=== PATIENT | male | born 1935 | race Caucasian/White ===

== ENCOUNTER 2017-05-01 05:55 | Day surgery (SDC) | payer OTHER ==
[~2017-05-01 05:55] MED LIST: ATORVASTATIN CA10 MG PO; BETIMOL5 ML OP; COZAAR50 MG PO; FOLIC ACID1 MG PO; LATANOPROST1 GM; TAMS0.4C PO; VITAMIN D35000 UNIT PO
== END 2017-05-01 17:30 | disposition home or self-care (01) ==
LOC: CIR.AMB 05:55
DX: K40.90 Unilateral inguinal hernia, without obstruction or gangrene, not specified as recurrent (principal); M46.1 Sacroiliitis, not elsewhere classified; M17.0 Bilateral primary osteoarthritis of knee; M62.838 Other muscle spasm; R15.9 Full incontinence of feces

== ENCOUNTER 2017-05-31 08:56 | Outpatient (CLI) | payer OTHER | END 2017-05-31 11:45 | disposition home or self-care (01) | LOC: TOM 08:56 | DX: R10.9 Unspecified abdominal pain (principal) ==

== ENCOUNTER 2017-10-09 05:35 | Day surgery (SDC) | payer OTHER | END 2017-10-09 14:10 | disposition home or self-care (01) | LOC: CIR.AMB 05:35 | DX: K40.90 Unilateral inguinal hernia, without obstruction or gangrene, not specified as recurrent (principal) ==

== ENCOUNTER → 2018-05-08 | Outpatient (CLI) | payer OTHER | END | disposition home or self-care (01) | LOC: NUCLEAR 09:30 | DX: I10 Essential (primary) hypertension (principal); I67.89 Other cerebrovascular disease ==

== ENCOUNTER 2019-05-14 20:22 | Inpatient (IN) | payer OTHER ==
[~2019-05-14] VITALS: Ht 170.2 cm; Wt 60.3 kg
--- NOTE | 2019-05-14 21:21 | NUR ---
PTE ALERTA Y ORIENTADO X3 ACOMPANADO. PTE REFIERE QUE A LAS 7:30PM PRESENTO UN EPISODIO DONDE QUERIA HABLAR Y SOLO PODIA DECIR DISPARATES. B/P MANUAL EN 210/80 Y PULSO EN 50. SE LE REALIZA EKG Y SE LE PRESENTA A DR. BRANDT. SE COLOCA PTE EN K8 CONECTADO A MONITOR CARDIACO Y OXIMETRIA.
--- NOTE | 2019-05-14 22:17 | NUR ---
TX. OFRECIDO POR MR. BAERERO QUIEN ORIENTA AL PACIENTE SOBRE EL TX. EXTRAE MUESTRAS DE AMADA BAJO MEDIDAS ASEPTICAS CANALIZA Y COLOCA H/L.
--- NOTE | 2019-05-15 01:31 | NUR ---
SE TRASLADA MASCULINO ALERTA Y ORIENTADO POR ALBERT ESFERAS, EN CAMA CON BARANDAS ELEVADAS Y SEGURAS. SE UBICA EN AREA DE CHEST PAIN. SE CONECTA A MONITOR CARDIACO CON OXIMETRIA DE PULSO. SE ENTREGA A MR. MILLER.
--- NOTE | 2019-05-15 01:35 | NUR ---
SE RECIBE PACIENTE ALERTA Y ORIENTADO X3 ACOMPANADO POR RAMIREZ ESPOSA, SE UBICA EN CAMA 16 DE LA UNIDAD DE CHESTPAIN POR ORDEN DE DR. BRANDT PACIENTE SE CONECTA A MONITOR CARDIACO Y OXIMETRO DE PULSO , SE COMIENXA EN MEDICAMENTO CLEVIPREX POR ORDEN DE ,PACIENTE CON B/P EN 185/77. SE OBSERVA POR CAMBIOS. PACIENTE CON CONSULTA CON ,DR.RIVERA DELGADO, SE DA SEGUIMIENTO
--- NOTE | 2019-05-15 05:31 | NUR ---
PACIENTE PRECENTA B/P EN 120/55 CON CLEVIPREX A 1ML/HR SE NOTIFICA A DR. BRAVO QUIEN ORDENA COLOCAR EN HOLD MEDICAMENTO CLEVIPREX Y OBSERVAR PROXIMA B/P, SE EJECUTA ORDEN MEDICA, SE REALIZAN MUETRAS DE [facility]ATORIOS PARA TROPONINAS, CK, PROBNP.
== END 2019-05-17 17:50 | disposition home or self-care (01) | DRG 69 ==
LOC: ER 20:22 → SEC-K 05-15 07:19 → MEDI 05-15 14:30
PROVIDERS: ADMIT Internal Medicine
PROC: 4A12X4Z Monitoring of Cardiac Electrical Activity, External Approach (ICD-10-PCS; principal; 2019-05-15)
PROC: B030ZZZ Magnetic Resonance Imaging (MRI) of Brain (ICD-10-PCS; 2019-05-15)
PROC: B030YZZ Magnetic Resonance Imaging (MRI) of Brain using Other Contrast (ICD-10-PCS; 2019-05-15)
PROC: B246ZZZ Ultrasonography of Right and Left Heart (ICD-10-PCS; 2019-05-16)
PROC: B345ZZZ Ultrasonography of Bilateral Common Carotid Arteries (ICD-10-PCS; 2019-05-16)
PROC: B348ZZZ Ultrasonography of Bilateral Internal Carotid Arteries (ICD-10-PCS; 2019-05-16)
DX: G45.8 Other transient cerebral ischemic attacks and related syndromes (principal); I63.89 Other cerebral infarction; I67.4 Hypertensive encephalopathy; I48.92 Unspecified atrial flutter; I11.9 Hypertensive heart disease without heart failure; I34.0 Nonrheumatic mitral (valve) insufficiency
CPT/HCPCS: 70546

== ENCOUNTER 2019-05-18 15:39 | Emergency (ER) | payer OTHER ==
[~2019-05-18] VITALS: Ht 160 cm; Wt 58.1 kg
== END 2019-05-19 09:01 | disposition home or self-care (01) ==
LOC: ER 15:39
DX: R53.1 Weakness (principal); I11.9 Hypertensive heart disease without heart failure; M46.1 Sacroiliitis, not elsewhere classified; M62.838 Other muscle spasm; K40.90 Unilateral inguinal hernia, without obstruction or gangrene, not specified as recurrent

== ENCOUNTER 2019-06-18 05:50 | Day surgery (SDC) | payer OTHER ==
[~2019-06-18 05:50] MED LIST changes: +PEPCID AC20 MG PO; +PLAVIX75 MG PO; +TOPROL XL25 M1 PO; +ZOLOFT50 MG PO
== END 2019-06-18 17:30 | disposition home or self-care (01) ==
LOC: CIR.AMB 05:50
DX: R15.9 Full incontinence of feces (principal)
CPT/HCPCS: 64581; C1778

== ENCOUNTER 2019-07-02 06:15 | Day surgery (SDC) | payer OTHER ==
[~2019-07-02 06:15] MED LIST changes: +[UNRECOGNIZED DRUG - OTHER]
== END 2019-07-02 10:45 | disposition home or self-care (01) ==
LOC: CIR.AMB 06:15 → ADM 11:15
DX: R15.9 Full incontinence of feces (principal)
CPT/HCPCS: 64590; C1767

== ENCOUNTER 2019-10-29 08:13 | Outpatient (CLI) | payer OTHER | END 2019-10-29 09:18 | disposition home or self-care (01) | LOC: NUCLEAR 08:13 | DX: C61 Malignant neoplasm of prostate (principal) | CPT/HCPCS: 78306; A9503 ==

== ENCOUNTER 2020-05-21 12:09 | Outpatient (CLI) | payer OTHER | END 2020-05-21 12:16 | disposition home or self-care (01) | LOC: LAB 12:09 | PROVIDERS: ATTEND Internal Medicine Sports Medicine | DX: N20.0 Calculus of kidney (principal) ==

== ENCOUNTER 2020-05-28 09:45 | Outpatient (CLI) | payer OTHER | END 2020-05-28 10:01 | disposition home or self-care (01) | LOC: TOM 09:45 | DX: N40.0 Benign prostatic hyperplasia without lower urinary tract symptoms (principal); C61 Malignant neoplasm of prostate; R97.8 Other abnormal tumor markers; Z01.811 Encounter for preprocedural respiratory examination | CPT/HCPCS: 71045; 72193; Q9965 ==

== ENCOUNTER 2020-09-17 16:37 | Emergency (ER) | payer OTHER ==
[~2020-09-17] VITALS: Ht 78.7 cm; Wt 62.1 kg
[2020-09-17] MEDS ORDERED: CASODEX50 MG (17:05)
[2020-09-17] MEDS ORDERED: CLEOCIN HCL300 MG PO (18:57)
[2020-09-17] MEDS ORDERED: PROTONIX40 MG PO (18:57)
[2020-09-17] MEDS ORDERED: KETO10TA2 PO (18:57)
== END 2020-09-17 19:09 | disposition home or self-care (01) ==
LOC: ER 16:37
DX: K04.7 Periapical abscess without sinus (principal)

== ENCOUNTER → 2021-01-27 07:27 | Outpatient (CLI) | payer OTHER ==
[~2021-01-27 07:27] MED LIST changes: +CASODEX50 MG; +CLEOCIN HCL300 MG PO; +KETO10TA2 PO; +PROTONIX40 MG PO
== END | disposition home or self-care (01) ==
LOC: NUCLEAR 07:27
PROVIDERS: ATTEND Radiology Radiation Oncology
DX: C61 Malignant neoplasm of prostate (principal)
CPT/HCPCS: 78803; A9503

== ENCOUNTER 2022-02-05 14:07 | Emergency (ER) | payer OTHER ==
[~2022-02-05] VITALS: Ht 170.2 cm; Wt 59.0 kg
== END 2022-02-05 17:31 | disposition home or self-care (01) ==
LOC: ER 14:07
DX: R55 Syncope and collapse (principal); I10 Essential (primary) hypertension

== ENCOUNTER 2022-07-09 11:58 | Emergency (ER) | payer OTHER ==
[~2022-07-09] VITALS: Ht 167.6 cm; Wt 58.1 kg
[2022-07-09] MEDS ORDERED: COZAAR50 MG PO (12:15)
[2022-07-09] MEDS ORDERED: ZOLOFT50 MG PO (12:15)
[2022-07-09] MEDS ORDERED: PLAVIX75 MG PO (12:15)
[2022-07-09] MEDS ORDERED: LIPITOR20 MG (12:16)
[2022-07-09] MEDS ORDERED: TAMS0.4C PO (12:16)
[2022-07-09] MEDS ORDERED: IMODIUM A-D2 MG PO (12:16)
[2022-07-09] MEDS ORDERED: CASODEX50 MG PO (12:17)
[2022-07-09] MEDS ORDERED: LATANOPROST2.5 ML OP (12:17)
[2022-07-09] MEDS ORDERED: PROTONIX40 M1 PO (12:17)
[2022-07-09] MEDS ORDERED: OXYBUTYNIN CHLOR5 M1 PO (12:18)
== END 2022-07-09 18:26 | disposition home or self-care (01) ==
LOC: ER 11:58
DX: S50.11XA Contusion of right forearm, initial encounter (principal); W19.XXXA Unspecified fall, initial encounter; Y93.9 Activity, unspecified; Y92.9 Unspecified place or not applicable; L03.113 Cellulitis of right upper limb; I10 Essential (primary) hypertension

== ENCOUNTER 2022-07-13 09:28 | Emergency (ER) | payer OTHER ==
[~2022-07-13] VITALS: Ht 170.2 cm; Wt 58.1 kg
[~2022-07-13 09:28] MED LIST changes: +CASODEX50 MG PO; +IMODIUM A-D2 MG PO; +LATANOPROST2.5 ML OP; +LIPITOR20 MG; +OXYBUTYNIN CHLOR5 M1 PO; +PROTONIX40 M1 PO
== END 2022-07-13 12:50 | disposition home or self-care (01) ==
LOC: ER 09:28
DX: M71.10 Other infective bursitis, unspecified site (principal); B96.89 Other specified bacterial agents as the cause of diseases classified elsewhere; I10 Essential (primary) hypertension; Z85.46 Personal history of malignant neoplasm of prostate

== ENCOUNTER 2022-08-29 13:22 | Outpatient (CLI) | payer OTHER | END 2022-08-29 13:28 | disposition home or self-care (01) | LOC: LAB 13:22 | DX: M85.2 Hyperostosis of skull (principal) ==

== ENCOUNTER 2023-06-28 12:58 | Outpatient (CLI) | payer OTHER | END 2023-06-28 13:00 | disposition home or self-care (01) | LOC: NUCLEAR 12:58 | PROVIDERS: ATTEND Internal Medicine Cardiovascular Disease | DX: I87.2 Venous insufficiency (chronic) (peripheral) (principal) ==

== ENCOUNTER 2024-02-13 10:52 | Outpatient (CLI) | payer OTHER | END 2024-02-13 10:53 | disposition home or self-care (01) | LOC: NUCLEAR 10:52 | PROVIDERS: ATTEND Internal Medicine Cardiovascular Disease | DX: I82.3 Embolism and thrombosis of renal vein (principal); I87.2 Venous insufficiency (chronic) (peripheral) ==

== ENCOUNTER → 2024-03-21 09:02 | Outpatient (CLI) | payer OTHER | END | disposition home or self-care (01) | LOC: NUCLEAR 09:00 | PROVIDERS: ATTEND Internal Medicine | DX: I87.2 Venous insufficiency (chronic) (peripheral) (principal) ==

== ENCOUNTER → 2024-07-17 07:17 | Outpatient (CLI) | payer OTHER | END | disposition home or self-care (01) | LOC: NUCLEAR 06:00 | DX: C61 Malignant neoplasm of prostate (principal); M85.80 Other specified disorders of bone density and structure, unspecified site; M54.9 Dorsalgia, unspecified | CPT/HCPCS: 78306; A9503 ==

== ENCOUNTER 2025-01-12 15:58 | Outpatient (CLI) | payer OTHER | END 2025-01-12 15:59 | disposition home or self-care (01) | LOC: RAD 15:58 | DX: R05.9 Cough, unspecified (principal) ==